=== PATIENT | male | born 1940 | race Caucasian/White ===

== ENCOUNTER → 2020-05-03 13:44 | Outpatient (BNVA) | payer MEDICARE, SELFPAY | PROVIDERS: PCP Internal Medicine; Visit Provider Internal Medicine | DX: I48.0 Paroxysmal atrial fibrillation (principal); Z51.81 Encounter for therapeutic drug level monitoring; Z79.01 Long term (current) use of anticoagulants | CPT/HCPCS: 85610; 99211 ==

== ENCOUNTER → 2020-05-31 13:37 | Outpatient (BNVA) | payer MEDICARE, SELFPAY | PROVIDERS: PCP Internal Medicine; Visit Provider Internal Medicine | DX: I48.0 Paroxysmal atrial fibrillation (principal); Z51.81 Encounter for therapeutic drug level monitoring; Z79.01 Long term (current) use of anticoagulants | CPT/HCPCS: 85610; 99211 ==

== ENCOUNTER → 2020-06-28 13:08 | Outpatient (BNVA) | payer MEDICARE, SELFPAY | PROVIDERS: PCP Internal Medicine; Visit Provider Internal Medicine | DX: I48.0 Paroxysmal atrial fibrillation (principal); Z51.81 Encounter for therapeutic drug level monitoring; Z79.01 Long term (current) use of anticoagulants | CPT/HCPCS: 85610; 99211 ==

== ENCOUNTER 2020-07-03 06:02 | Outpatient (REF) | payer MEDICARE, SELFPAY ==
[2020-07-03 11:39] LABS: Alanine Aminotransferase 25 U/L (0-40); Albumin Level 4.2 g/dL (3.5-5.0); Alkaline Phosphatase 73 U/L (39-117); Aspartate Amino Transferase 23 U/L (5-37); Bilirubin Direct 0.4 mg/dL (0.0-0.5); Bilirubin Total 0.9 mg/dL (0.0-1.0); Cholesterol 159 mg/dL; Glucose Fasting 240 mg/dL (60-99); HDL Cholesterol 63 mg/dL; LDL Cholesterol Calculated 74 mg/dl; Total Protein 7.1 g/dL (6.5-8.0); Triglycerides 110 mg/dL
[2020-07-03 12:04] LABS: Estimated Average Glucose 280 mg/dL; Hemoglobin A1c % 11.4 %
== END 2020-07-03 06:03 | disposition home or self-care (01) ==
LOC: HO.HMGCLDS 06:02
PROVIDERS: PCP Internal Medicine; Visit Provider Internal Medicine
DX: E03.9 Hypothyroidism, unspecified (principal); E11.9 Type 2 diabetes mellitus without complications; E78.00 Pure hypercholesterolemia, unspecified
CPT/HCPCS: 80061; 80076; 82947; 83036; 84443

== ENCOUNTER → 2020-07-26 12:47 | Outpatient (BNVA) | payer MEDICARE, SELFPAY | PROVIDERS: PCP Internal Medicine; Visit Provider Internal Medicine | DX: I48.0 Paroxysmal atrial fibrillation (principal); Z79.01 Long term (current) use of anticoagulants; Z51.81 Encounter for therapeutic drug level monitoring | CPT/HCPCS: 85610; 99211 ==

== ENCOUNTER → 2020-08-23 13:23 | Outpatient (BNVA) | payer MEDICARE, SELFPAY | PROVIDERS: PCP Internal Medicine; Visit Provider Internal Medicine | DX: I48.0 Paroxysmal atrial fibrillation (principal); Z51.81 Encounter for therapeutic drug level monitoring; Z79.01 Long term (current) use of anticoagulants | CPT/HCPCS: 85610; 99211 ==

== ENCOUNTER → 2020-09-20 13:08 | Outpatient (BNVA) | payer MEDICARE, SELFPAY | PROVIDERS: PCP Internal Medicine; Visit Provider Internal Medicine | DX: I48.0 Paroxysmal atrial fibrillation (principal); Z51.81 Encounter for therapeutic drug level monitoring; Z79.01 Long term (current) use of anticoagulants | CPT/HCPCS: 85610; 99211 ==

== ENCOUNTER → 2020-10-19 13:16 | Outpatient (BNVA) | payer MEDICARE, SELFPAY | PROVIDERS: PCP Internal Medicine; Visit Provider Internal Medicine | DX: I48.0 Paroxysmal atrial fibrillation (principal); Z79.01 Long term (current) use of anticoagulants; Z51.81 Encounter for therapeutic drug level monitoring | CPT/HCPCS: 85610; 99211 ==

== ENCOUNTER → 2020-11-16 13:10 | Outpatient (BNVA) | payer MEDICARE, SELFPAY | PROVIDERS: PCP Internal Medicine; Visit Provider Internal Medicine | DX: I48.0 Paroxysmal atrial fibrillation (principal); Z79.01 Long term (current) use of anticoagulants; Z51.81 Encounter for therapeutic drug level monitoring | CPT/HCPCS: 85610; 99211 ==

== ENCOUNTER → 2020-12-07 13:16 | Outpatient (BNVA) | payer MEDICARE, SELFPAY | PROVIDERS: PCP Internal Medicine; Visit Provider Internal Medicine | DX: I48.0 Paroxysmal atrial fibrillation (principal); Z51.81 Encounter for therapeutic drug level monitoring; Z79.01 Long term (current) use of anticoagulants | CPT/HCPCS: 85610; 99211 ==

== ENCOUNTER → 2021-01-04 13:17 | Outpatient (BNVA) | payer MEDICARE, SELFPAY | PROVIDERS: PCP Internal Medicine; Visit Provider Internal Medicine | DX: I48.0 Paroxysmal atrial fibrillation (principal); Z51.81 Encounter for therapeutic drug level monitoring; Z79.01 Long term (current) use of anticoagulants | CPT/HCPCS: 85610; 99211 ==

== ENCOUNTER 2021-01-08 12:53 | Outpatient (REF) | payer MEDICARE, SELFPAY ==
[2021-01-08 12:58] LABS: MANUAL DIFF FLAG NO
[2021-01-08 13:06] LABS: Basophils Percent Auto 0.7 % (0-2); Eosinophils Absolute Auto 0.4 X10*3/uL (0.0-0.4); Eosinophils Percent Auto 7.1 % (0-4); Imm Gran Abs Auto 0.04 X10*3/uL (0.00-0.03); Imm Gran Pct Auto 0.7 % (0.0-0.4); Lymphocytes Absolute Auto 1.7 X10*3/uL (1.2-4.9); Lymphocytes Percent Auto 29.9 % (20-40); Mean Corpuscular HGB Conc 32.6 g/dl (31.0-36.0); Mean Corpuscular Hemoglobin 31.7 pg (27.0-33.0); Mean Corpuscular Volume 97.5 fL (80-98); Mean Platelet Volume 11.7 fL (9.4-12.4); Monocytes Absolute Auto 0.5 X10*3/uL (0.1-1.2); Monocytes Percent Auto 9.4 % (2-11); Neutrophils Absolute Auto 2.9 X10*3/uL (2.0-8.3); Neutrophils Percent Auto 52.2 % (45-73); Platelet Count 157 X10*3/uL (160-400); Red Blood Count 4.41 X10*6/uL (4.60-5.80); Red Cell Distribution Width 12.9 % (11.0-16.0); White Blood Count 5.6 X10*3/uL (4.8-10.8)
[2021-01-08 13:13] LABS: Estimated Average Glucose 289 mg/dL; Hemoglobin A1c % 11.7 %
[2021-01-08 13:57] LABS: Alanine Aminotransferase 22 U/L (0-40); Alkaline Phosphatase 68 U/L (39-117); Anion Gap 12 (12-20); Aspartate Amino Transferase 26 U/L (5-37); Bilirubin Total 0.8 mg/dL (0.0-1.0); Blood Urea Nitrogen 15 mg/dL (9-16); Calcium 8.8 mg/dL (8.4-10.2); Carbon Dioxide 29 mmol/L (22-29); Chloride 102 mmol/L (96-108); Cholesterol 146 mg/dL; Estimated Glomerular Filt Rate > 60; Glucose Fasting 161 mg/dL (60-99); HDL Cholesterol 52 mg/dL; LDL Cholesterol Calculated 70 mg/dl; Sodium 139 mmol/L (135-145); Total Protein 6.6 g/dL (6.5-8.0); Triglycerides 121 mg/dL
[2021-01-08 13:59] LABS: Creatinine Urine 257.28 mg/dL; Microalbum/Creatinine Ratio Ur 24.8 ug/mg cr
[2021-01-08 14:06] LABS: Reflex LDLD? No
[2021-01-08 14:07] LABS: Glucose Urine UA NEG (NEG); Leukocyte Esterase Urine NEG (NEG); Nitrite Urine NEG (NEG); PH 5.5 (5.0-8.0); Specific Gravity - Urine >= 1.030 (1.005-1.025); Urine Blood NEG (NEG); Urine Ketones 5 MG/DL (NEG); Urine Protein TRACE MG/DL (NEG-TRACE)
[2021-01-08 14:13] LABS: PSA,Total (Free>4and<10) 1.05 ng/mL (0.00-4.00); TSH reflex Free T4 3.93 uIU/mL (0.32-4.0)
[2021-01-08 14:14] LABS: Appearance Urine CLEAR; Color Urine YELLOW
== END 2021-01-08 12:54 | disposition home or self-care (01) ==
LOC: HO.LNP 12:53
PROVIDERS: Visit Provider Internal Medicine
DX: Z12.5 Encounter for screening for malignant neoplasm of prostate (principal); I10 Essential (primary) hypertension; E78.00 Pure hypercholesterolemia, unspecified; D64.9 Anemia, unspecified; E11.40 Type 2 diabetes mellitus with diabetic neuropathy, unspecified; E03.9 Hypothyroidism, unspecified
CPT/HCPCS: 80053; 80061; 81003; 82043; 83036; 84153; 84443; 85025

== ENCOUNTER → 2021-02-01 13:03 | Outpatient (BNVA) | payer MEDICARE, SELFPAY | PROVIDERS: PCP Internal Medicine; Visit Provider Internal Medicine | DX: I48.0 Paroxysmal atrial fibrillation (principal); Z51.81 Encounter for therapeutic drug level monitoring; Z79.01 Long term (current) use of anticoagulants | CPT/HCPCS: 85610; 99211 ==

== ENCOUNTER 2021-02-22 15:40 | Emergency (ER) | payer MEDICARE, SELFPAY ==
--- NOTE | ~2021-02-22 | XR_ITS ---
EXAMINATION: XR WRIST, RIGHT CLINICAL INFORMATION: Wound. Concern for osteomyelitis. COMPARISON: None TECHNIQUE: Four views of the right wrist. FINDINGS: There is no bone destruction or abnormal periosteal reaction. No radiographic evidence for osteomyelitis. 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 Mild joint narrowing of the radiocarpal joint. Small vessel calcifications of the wrist. XR/XR wrist RT 2V IMPRESSION: No radiographic evidence for ostomy myelitis. 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
[2021-02-22 15:56] VITALS: BP 155/63; PULSE 76; RESP 16; O2SAT 97; BMI 33.9
--- NOTE | 2021-02-22 17:31 | ED_ITS ---
HPI - Wound/Laceration General Chief Complaint: Wound/Laceration Stated Complaint: WRIST INFECTION Time Seen by Provider: 02/22/21 17:17 Source: patient Mode of arrival: ambulatory Limitations: no limitations History of Present Illness HPI narrative: 80 yo male with a past medical history insulin-dependent diabetes, AFib on Coumadin here with complaints of redness and pain to the right wrist. Patient tells me 6 days ago he was working on his tractor when he caused a skin tear to the right wrist. Yesterday he noticed some redness and swelling to the site. He spoke to his primary care doctor today and was sent into the emergency department for further evaluation. No fevers or chills. He tells me his blood sugars have been running high for him (200's). Related Data Home Medications Medication Instructions Recorded Confirmed atorvastatin 80 mg tablet 80 mg PO DAILY 06/28/20 01/04/21 celecoxib 200 mg capsule 200 mg PO DAILY 06/28/20 01/04/21 insulin glargine 100 unit/mL (3 40 unit SUBCUT DAILY 06/28/20 01/04/21 mL) subcutaneous pen ketoconazole 2 % topical cream appl TOPICAL 06/28/20 01/04/21 levothyroxine 125 mcg tablet 125 mcg PO QAM 06/28/20 01/04/21 metformin 1,000 mg tablet 1,000 mg PO BID 06/28/20 01/04/21 paroxetine HCl 10 mg tablet 10 mg PO DAILY 06/28/20 01/04/21 pen needle, diabetic 31 gauge x #50 ea 06/28/20 01/04/2109/26 chlorhexidine gluconate 0.12 % ml PO BID 11/16/20 01/04/21 mouthwash levothyroxine 125 mcg tablet 125 mcg PO DAILY 11/16/20 01/04/21 tamsulosin 0.4 mg capsule 0.4 mg PO BID 11/16/20 01/04/21 triamcinolone acetonide 0.025 % appl TOPICAL DIRECTED 11/16/20 01/04/21 topical cream Previous Rx's Medication Instructions Recorded warfarin 5 mg tablet 5 mg PO DAILY #90 tab 05/03/20 doxycycline monohydrate 100 mg 100 mg PO BID #20 cap 02/22/21 capsule Allergies Allergy/AdvReac Type Severity Reaction Status Date / Time No Known Allergies Allergy Verified 12/07/20 13:17 [No Known Allergies*] Review of Systems Review of Systems: Yes all other systems are reviewed and are negative Constitutional: Constitutional: Reports no additional constitutional complaints, Denies body ache(s), Denies chills, Denies fever(s), Denies headache(s) and Denies weakness Eyes: Eyes: Reports no additional eye complaints and Denies change in vision ENT: Reports system reviewed and no additional complaints, except as documented, Denies dizziness, Denies headache(s), Denies nasal congestion, Denies nasal discharge and Denies neck pain Cardiovascular: Cardiovascular: Reports no additional cardiovascular complaints, Denies chest pain, Denies leg edema and Denies dyspnea Respiratory: Respiratory: Reports no additional respiratory complaints, Denies cough and Denies dyspnea Gastrointestinal: Gastrointestinal: Reports no additional gastrointestinal complaints, Denies abdominal pain, Denies diarrhea, Denies nausea and Denies vomiting Genitourinary: Genitourinary: Denies urinary incontinence Musculoskeletal: Musculoskeletal: Reports no additional musculoskeletal complaints, Denies back pain, Denies arthralgias, Denies joint swelling, Denies neck pain, Denies numbness and Denies tingling Integumentary/Breasts: Skin/Breast: Reports system reviewed and no additional complaints, except as docu, Reports swelling, Reports erythema and Denies rash Neurologic: Reports system reviewed and no additional complaints, except as documented, Denies Abnormal speech present, Denies dizziness, Denies headache(s), Denies numbness, Denies tingling and Denies weakness PMFSH Past Medical History Attestation statement: The following information was validated with the patient. Source: old records reviewed and nursing notes reviewed Medical History Diabetes Social History Social History Advance Directives: No Advance Directives Information Provided: No Physical Exam Vital Signs: Vital Signs: Last Vital Signs Temp 97.5 F 02/22/21 19:30 Pulse 67 02/22/21 19:30 Resp 17 02/22/21 19:30 BP 173/83 H 02/22/21 19:30 Pulse Ox 97 02/22/21 19:30 Body Mass Index 33.9 Const: General: cooperative, healthy appearing, comfortable and no acute distress Orientation/consciousness: patient oriented x3 Limitations: no limitations HENMT: Head: Yes normal to inspection Ears: hearing grossly normal bilaterally General nose exam: Normal external nose present Face and sinus: Yes normal facial exam Mouth: Normal oral and palatal mucosa present Throat: Yes posterior oropharynx normal Eyes: General: appearance normal, both eyes and all related structures Pupils: Equal, round and reactive pupils present Neck: Neck: Yes normal visual inspection Chest: Chest palpation & inspection: normal inspection of the chest Resp: Effort & Inspection: normal respiratory effort Auscultation: clear to auscultation bilaterally Cardio: Rate: regular rate Rhythm: regular rhythm Peripheral pulses: Peripheral pulses 2+ throughout GI: Inspection: Yes normal to inspection Palpation (GI): Soft to palpation and nontender Auscultation: normal bowel sounds Back/Spine/Pelvis: Thoracic/Lumbar Spine: thoracic and lumbar spine normal to inspection Skin: General skin exam: no rashes or lesions noted Neuro: General: patient oriented x3, no focal motor deficits and normal sensation to monofilament Cranial nerves: Yes Equal, round and reactive pupils present Cognition (Neuro): normal cognition Speech: No Abnormal speech present Gait exam (Neuro): Normal gait present Motor exam (neuro): 5/5 motor strength present throughout Extrem: Other: No pain with passive or active range of motion of the wrist. No fluctuance or induration or abscess noted. Palpable distal pulses. General: Yes normal to inspection Course Course Course Narrative: 80-year-old male here with right wrist abrasion from an incident 6 days ago now with redness and swelling from the site. No fevers or chills. Exam is consistent with a mild cellulitis which is not circumferential. No fever. Will check labs, FA x-ray. -labs unremarkable. No leukocytosis or shift. Patient is afebrile. X-ray shows no acute finding. Patient is a mild cellulitis in the area was marked the skin marker. There is no evidence of tenosynovitis with full range of motion both passively and actively with no pain. Will discharge home with course of antibiotics. Reviewed worrisome signs and symptoms when to return to the emergency department. Comfortable discharge home. MDM - Wound/Laceration Medical Records Attestation: I reviewed the patient's medical records. Lab Data Attestation: I reviewed the patient's lab results. Result diagrams: 02/22/21 17:48 02/22/21 17:48 Labs: Lab Results 02/22/21 02/22/21 Range/Units 17:48 17:48 WBC 7.1 (4.8-10.8) X10*3/uL RBC 4.12 L (4.60-5.80) X10*6/uL Hgb 13.1 L (14.0-18.0) g/dl Hct 38.8 L (42-52) % MCV 94.2 (80-98) fL MCH 31.8 (27.0-33.0) pg MCHC 33.8 (31.0-36.0) g/dl RDW 12.6 (11.0-16.0) % Plt Count 165 (160-400) X10*3/uL MPV 10.4 (9.4-12.4) fL Immature Gran % (Auto) 0.6 H (0.0-0.4) % Neut % (Auto) 65.9 (45-73) % Lymph % (Auto) 19.4 L (20-40) % [place] % (Auto) 7.9 (2-11) % Eos % (Auto) 5.5 H (0-4) % Baso % (Auto) 0.7 (0-2) % Lymph # (Auto) 1.4 (1.2-4.9) X10*3/uL [place] # (Auto) 0.6 (0.1-1.2) X10*3/uL Eos # (Auto) 0.4 (0.0-0.4) X10*3/uL Baso # (Auto) 0.1 (0.0-0.2) X10*3/uL Abs Immat Gran (auto) 0.04 H (0.00-0.03) X10*3/uL Absolute Neuts (auto) 4.7 (2.0-8.3) X10*3/uL Absolute Nucleated RBC 0.000 (0.0-0.012) X10*3/uL Nucleated RBC % (auto) 0.0 (0.0-0.2) /100WBC Sodium 139 (135-145) mmol/L Potassium 4.8 (3.3-5.1) mmol/L Chloride 104 (96-108) mmol/L Carbon Dioxide 25 (22-29) mmol/L Anion Gap 15 (12-20) BUN 11 (9-16) mg/dL Creatinine 0.90 (0.5-1.4) mg/dL Estim Creat Clear Calc 83.6 Estimated GFR > 60 Random Glucose 182 H (60-115) mg/dL Calcium 9.0 (8.4-10.2) mg/dL Total Bilirubin 0.9 (0.0-1.0) mg/dL Direct Bilirubin 0.4 (0.0-0.5) mg/dL AST 27 (5-37) U/L ALT 25 (0-40) U/L Alkaline Phosphatase 71 (39-117) U/L Total Protein 6.8 (6.5-8.0) g/dL Albumin 4.1 (3.5-5.0) g/dL Imaging Data forearm xray: Attestation: I personally reviewed and interpreted this imaging study as follows: Radiologist's impression: [address] [address] XRay Report Signed Patient: Leighton Sierra MR#: [id number] : 1940 Acct:[id number] Age/Sex: 80 / M ADM Date: 02/22/21 Loc: .ED Attending Dr: Ordering Physician: GALEN YHLTON NP Date of Service: 02/22/21 Procedure(s): XR wrist RT 2V Accession Number(s): [id number] cc: GALEN HYLTON NP~ EXAMINATION: XR WRIST, RIGHT CLINICAL INFORMATION: Wound. Concern for osteomyelitis.? COMPARISON: None? TECHNIQUE: Four views of the right wrist. FINDINGS: There is no bone destruction or abnormal periosteal reaction. No radiographic evidence for osteomyelitis. 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 Mild joint narrowing of the radiocarpal joint. Small vessel calcifications of the wrist.? XR/XR wrist RT 2V IMPRESSION: No radiographic evidence for ostomy myelitis. 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 Discharge Plan Discharge Clinical Impression: Cellulitis Patient Disposition: Home, Self-Care Instructions: Cellulitis (ED) Additional Instructions: Start your antibiotics today Warm compresses 4 times a day Return for fever greater than 100.4, difficulty bending or extending the wrist, redness that extends 360 around the arm, increasing pain Prescriptions: New doxycycline monohydrate 100 mg capsule 100 mg PO BID Qty: 20 RF: 0 No Action tamsulosin 0.4 mg capsule 0.4 mg PO BID RF: 0 triamcinolone acetonide 0.025 % cream topical DIRECTED RF: 0 chlorhexidine gluconate 0.12 % mouthwash PO BID RF: 0 levothyroxine 125 mcg tablet 125 mcg PO DAILY RF: 0 warfarin 5 mg tablet 5 mg PO DAILY Qty: 90 RF: 0 levothyroxine 125 mcg tablet 125 mcg PO QAM RF: 0 ketoconazole 2 % cream topical RF: 0 Lantus Solostar U-100 Insulin 100 unit/mL (3 mL) insulin pen 40 unit subcut DAILY RF: 0 paroxetine HCl 10 mg tablet 10 mg PO DAILY RF: 0 (DME) pen needle, diabetic 31 gauge x 3/16 needle See Rx Instructions ea subcut DIRECTED Qty: 50 RF: 0 celecoxib 200 mg capsule 200 mg PO DAILY RF: 0 atorvastatin 80 mg tablet 80 mg PO DAILY RF: 0 metformin 1,000 mg tablet 1,000 mg PO BID RF: 0 Referrals: Huan Martinez MD [Primary Care Provider] - 2 days Interventions: ED Discharge Assessment Last Done: 02/22/21 19:58 Discharge Date/Time: 02/22/21 19:59
[2021-02-22 17:54] LABS: MANUAL DIFF FLAG NO
[2021-02-22 17:55] LABS: Basophils Absolute Auto 0.1 X10*3/uL (0.0-0.2); Basophils Percent Auto 0.7 % (0-2); Eosinophils Absolute Auto 0.4 X10*3/uL (0.0-0.4); Eosinophils Percent Auto 5.5 % (0-4); Hematocrit 38.8 % (42-52); Hemoglobin 13.1 g/dl (14.0-18.0); Imm Gran Abs Auto 0.04 X10*3/uL (0.00-0.03); Imm Gran Pct Auto 0.6 % (0.0-0.4); Lymphocytes Absolute Auto 1.4 X10*3/uL (1.2-4.9); Lymphocytes Percent Auto 19.4 % (20-40); Mean Corpuscular HGB Conc 33.8 g/dl (31.0-36.0); Mean Corpuscular Hemoglobin 31.8 pg (27.0-33.0); Mean Corpuscular Volume 94.2 fL (80-98); Mean Platelet Volume 10.4 fL (9.4-12.4); Monocytes Absolute Auto 0.6 X10*3/uL (0.1-1.2); Monocytes Percent Auto 7.9 % (2-11); Neutrophils Absolute Auto 4.7 X10*3/uL (2.0-8.3); Neutrophils Percent Auto 65.9 % (45-73); Platelet Count 165 X10*3/uL (160-400); Red Blood Count 4.12 X10*6/uL (4.60-5.80); Red Cell Distribution Width 12.6 % (11.0-16.0); White Blood Count 7.1 X10*3/uL (4.8-10.8)
[2021-02-22 19:30] VITALS: BP 173/83; PULSE 67; RESP 17; TEMP 36.4; O2SAT 97
--- NOTE | 2021-02-22 19:33 | PC.NURSE ---
pt aaox4, resting on stretcher in NAD, breathing with ease on RA. Pt c/o R forearm pain 09/20, denies all other complaints. Pt awaiting lab results and dispo, is aware and agreeable to this plan. Pt stretcher low locked, rails raised, call munoz within reach.
[2021-02-22 19:38] LABS: Alanine Aminotransferase 25 U/L (0-40); Albumin Level 4.1 g/dL (3.5-5.0); Alkaline Phosphatase 71 U/L (39-117); Anion Gap 15 (12-20); Aspartate Amino Transferase 27 U/L (5-37); Bilirubin Direct 0.4 mg/dL (0.0-0.5); Bilirubin Total 0.9 mg/dL (0.0-1.0); Blood Urea Nitrogen 11 mg/dL (9-16); Carbon Dioxide 25 mmol/L (22-29); Chloride 104 mmol/L (96-108); Creatinine Clr Calc Pharmacy 83.6; Estimated Glomerular Filt Rate > 60; Glucose Random 182 mg/dL (60-115); Potassium 4.8 mmol/L (3.3-5.1); Sodium 139 mmol/L (135-145); Total Protein 6.8 g/dL (6.5-8.0)
== END 2021-02-22 19:59 | disposition home or self-care (01) ==
PROVIDERS: Nurse Practitioner Family; Emergency Provider Emergency Medicine Emergency Medical Services; PCP Internal Medicine
DX: L03.113 Cellulitis of right upper limb (principal); M25.531 Pain in right wrist; E11.9 Type 2 diabetes mellitus without complications; I48.91 Unspecified atrial fibrillation; Z79.4 Long term (current) use of insulin; Z79.899 Other long term (current) drug therapy; Z79.01 Long term (current) use of anticoagulants
CPT/HCPCS: 36415; 73100; 80048; 80076; 85025; 99283; 99284

== ENCOUNTER → 2021-03-15 13:02 | Outpatient (BNVA) | payer MEDICARE, SELFPAY | PROVIDERS: PCP Internal Medicine; Visit Provider Internal Medicine | DX: I48.0 Paroxysmal atrial fibrillation (principal); Z51.81 Encounter for therapeutic drug level monitoring; Z79.01 Long term (current) use of anticoagulants | CPT/HCPCS: 85610; 99211 ==

== ENCOUNTER → 2021-04-26 13:03 | Outpatient (BNVA) | payer MEDICARE, SELFPAY | PROVIDERS: PCP Internal Medicine; Visit Provider Internal Medicine | DX: I48.0 Paroxysmal atrial fibrillation (principal); Z51.81 Encounter for therapeutic drug level monitoring; Z79.01 Long term (current) use of anticoagulants | CPT/HCPCS: 85610; 99211 ==

== ENCOUNTER → 2021-05-23 13:29 | Outpatient (BNVA) | payer MEDICARE, SELFPAY | PROVIDERS: PCP Internal Medicine; Visit Provider Internal Medicine | DX: I48.0 Paroxysmal atrial fibrillation (principal); Z51.81 Encounter for therapeutic drug level monitoring; Z79.01 Long term (current) use of anticoagulants | CPT/HCPCS: 85610; 99211 ==

== ENCOUNTER → 2021-06-13 13:04 | Outpatient (BNVA) | payer MEDICARE, SELFPAY | PROVIDERS: PCP Internal Medicine; Visit Provider Internal Medicine | DX: I48.0 Paroxysmal atrial fibrillation (principal); Z51.81 Encounter for therapeutic drug level monitoring; Z79.01 Long term (current) use of anticoagulants | CPT/HCPCS: 85610; 99211 ==

== ENCOUNTER → 2021-07-11 13:01 | Outpatient (BNVA) | payer MEDICARE, SELFPAY | PROVIDERS: PCP Internal Medicine; Visit Provider Internal Medicine | DX: I48.0 Paroxysmal atrial fibrillation (principal); Z51.81 Encounter for therapeutic drug level monitoring; Z79.01 Long term (current) use of anticoagulants | CPT/HCPCS: 85610; 99211 ==

== ENCOUNTER 2021-07-19 10:43 | Outpatient (REF) | payer MEDICARE, SELFPAY ==
[2021-07-19 11:07] LABS: Estimated Average Glucose 252 mg/dL; Hemoglobin A1c % 10.4 %
[2021-07-19 11:12] LABS: Alanine Aminotransferase 29 U/L (0-40); Albumin Level 3.9 g/dL (3.5-5.0); Alkaline Phosphatase 66 U/L (39-117); Aspartate Amino Transferase 26 U/L (5-37); Bilirubin Direct 0.4 mg/dL (0.0-0.5); Cholesterol 142 mg/dL; Glucose Fasting 308 mg/dL (60-99); HDL Cholesterol 49 mg/dL; LDL Cholesterol Calculated 74 mg/dl; Total Protein 6.6 g/dL (6.5-8.0); Triglycerides 99 mg/dL
[2021-07-19 12:58] LABS: Reflex LDLD? No
== END 2021-07-19 10:44 | disposition home or self-care (01) ==
LOC: HO.LNP 10:43
PROVIDERS: Visit Provider Internal Medicine
DX: E78.00 Pure hypercholesterolemia, unspecified (principal); E11.9 Type 2 diabetes mellitus without complications
CPT/HCPCS: 80061; 80076; 82947; 83036

== ENCOUNTER → 2021-07-20 13:06 | Outpatient (BNVA) | payer MEDICARE, SELFPAY | PROVIDERS: PCP Internal Medicine; Visit Provider Internal Medicine | DX: I48.0 Paroxysmal atrial fibrillation (principal); Z51.81 Encounter for therapeutic drug level monitoring; Z79.01 Long term (current) use of anticoagulants | CPT/HCPCS: 85610; 99211 ==

== ENCOUNTER → 2021-08-17 13:05 | Outpatient (BNVA) | payer MEDICARE, SELFPAY | PROVIDERS: PCP Internal Medicine; Visit Provider Internal Medicine | DX: I48.0 Paroxysmal atrial fibrillation (principal); Z51.81 Encounter for therapeutic drug level monitoring; Z79.01 Long term (current) use of anticoagulants | CPT/HCPCS: 85610; 99211 ==

== ENCOUNTER → 2021-09-14 13:01 | Outpatient (BNVA) | payer MEDICARE, SELFPAY | PROVIDERS: PCP Internal Medicine; Visit Provider Internal Medicine | DX: I48.0 Paroxysmal atrial fibrillation (principal); Z51.81 Encounter for therapeutic drug level monitoring; Z79.01 Long term (current) use of anticoagulants | CPT/HCPCS: 85610; 99211 ==

== ENCOUNTER → 2021-10-12 13:00 | Outpatient (BNVA) | payer MEDICARE, SELFPAY | PROVIDERS: PCP Internal Medicine; Visit Provider Internal Medicine | DX: I48.0 Paroxysmal atrial fibrillation (principal); Z51.81 Encounter for therapeutic drug level monitoring; Z79.01 Long term (current) use of anticoagulants | CPT/HCPCS: 85610; 99211 ==

== ENCOUNTER → 2021-11-09 13:02 | Outpatient (BNVA) | payer MEDICARE, SELFPAY | PROVIDERS: PCP Internal Medicine; Visit Provider Internal Medicine | DX: I48.0 Paroxysmal atrial fibrillation (principal); Z79.01 Long term (current) use of anticoagulants; Z51.81 Encounter for therapeutic drug level monitoring | CPT/HCPCS: 85610; 99211 ==

== ENCOUNTER → 2021-12-07 13:05 | Outpatient (BNVA) | payer MEDICARE, SELFPAY | PROVIDERS: PCP Internal Medicine; Visit Provider Internal Medicine | DX: I48.0 Paroxysmal atrial fibrillation (principal); Z79.01 Long term (current) use of anticoagulants; Z51.81 Encounter for therapeutic drug level monitoring | CPT/HCPCS: 85610; 99211 ==

== ENCOUNTER 2021-12-15 15:57 | Emergency (ER) | payer MEDICARE, SELFPAY ==
--- NOTE | 2021-12-15 07:54 | ECG_ITS ---
Test Reason : CARDIAC ARREST Blood Pressure : / mmHG Vent. Rate : 077 BPM Atrial Rate : 000 BPM P-R Int : 000 ms QRS Dur : 166 ms QT Int : 444 ms P-R-T Axes : 000 231 052 degrees QTc Int : 502 ms Atrial fibrillation Right bundle branch block ST depression, consider subendocardial injury Abnormal ECG When compared with ECG of 21-JUL-2014 08:32, Significant changes have occurred Referred By: Criss Rodriguez Electronically Signed By:RAIZA GARCIA
--- NOTE | 2021-12-15 16:36 | ED.CPR ---
HPI - CPR General Chief Complaint: Cardiac Arrest/CPR Stated Complaint: UNWITNESSED CARDIAC ARREST,[place] PER EMS Time Seen by Provider: 12/15/21 16:36 Source: family and EMS Mode of arrival: EMS History of Present Illness HPI narrative: 81-year-old male with history of atrial fibrillation and diabetes on anticoagulation is brought in by EMS for unknown down time and being found by his . EMS reports that they had to place a Steven tube the performed ACLS for approximately 20 minutes, he was shocked once. Related Data Home Medications Medication Instructions Recorded Confirmed atorvastatin 80 mg tablet 80 mg PO DAILY 06/28/20 04/26/21 celecoxib 200 mg capsule 200 mg PO DAILY 06/28/20 04/26/21 insulin glargine 100 unit/mL (3 40 unit SUBCUT DAILY 06/28/20 04/26/21 mL) subcutaneous pen ketoconazole 2 % topical cream appl TOPICAL 06/28/20 04/26/21 levothyroxine 125 mcg tablet 125 mcg PO QAM 06/28/20 04/26/21 metformin 1,000 mg tablet 1,000 mg PO BID 06/28/20 04/26/21 paroxetine HCl 10 mg tablet 10 mg PO DAILY 06/28/20 04/26/21 pen needle, diabetic 31 gauge x #50 ea 06/28/20 04/26/2109/26 chlorhexidine gluconate 0.12 % ml PO BID 11/16/20 04/26/21 mouthwash levothyroxine 125 mcg tablet 125 mcg PO DAILY 11/16/20 04/26/21 tamsulosin 0.4 mg capsule 0.4 mg PO BID 11/16/20 04/26/21 triamcinolone acetonide 0.025 % appl TOPICAL DIRECTED 11/16/20 04/26/21 topical cream Previous Rx's Medication Instructions Recorded warfarin 5 mg tablet 5 mg PO DAILY #90 tab 05/03/20 Allergies Allergy/AdvReac Type Severity Reaction Status Date / Time No Known Allergies Allergy Verified 12/07/21 13:06 [No Known Allergies*] Review of Systems Review of Systems: Yes unobtainable due to endotracheal tube PMFSH Past Medical History Source: nursing notes reviewed Medical History Diabetes Social History Social History Advance Directives: No Advance Directives Information Provided: No Physical Exam Vital Signs: Vital Signs: CPR in progress with the Akbar Steven tube in place with copious amount of vomitus noted on face of patient Course Course Course Narrative: Please review the code sheet for details.I discussed with the who was at bedside and requested that we stop efforts but at that time there was no noted cardiac activity on bedside ultrasound. 165: Time of Notified ME who declines the case #[id number] Reevaluation(s) Reevaluation #1: Contacted Dr Bailon and Dr Song for ROSC, but then resumed CPR afterwards. Time: 04:42 Reevaluation #2: Contacted Dr Song. MDM - Cardiac Arrest/CPR Lab Data Result diagrams: 12/15/21 16:38 12/15/21 16:38 Labs: Lab Results 12/15/21 12/15/21 12/15/21 Range/Units 16:02 16:38 16:38 WBC 9.3 (4.8-10.8) X10*3/uL RBC 3.74 L (4.60-5.80) X10*6/uL Hgb 11.8 L (14.0-18.0) g/dl Hct 37.5 L (42.0-52.0) % MCV 100.3 H (80.0-98.0) fL MCH 31.6 (27.0-33.0) pg MCHC 31.5 (31.0-36.0) g/dl RDW 12.9 (11.0-16.0) % Plt Count 154 L (160-400) X10*3/uL MPV 11.2 (9.4-12.4) fL Immature Gran % (Auto) Cancelled Neut % (Auto) Cancelled Lymph % (Auto) Cancelled [place] % (Auto) Cancelled Eos % (Auto) Cancelled Baso % (Auto) Cancelled Lymph # (Auto) Cancelled [place] # (Auto) Cancelled Eos # (Auto) Cancelled Baso # (Auto) Cancelled Abs Immat Gran (auto) Cancelled Absolute Neuts (auto) Cancelled Absolute Nucleated RBC 0.090 H (0.0-0.012) X10*3/uL Nucleated RBC % (auto) 1.0 H (0.0-0.2) /100WBC Neutrophils % (Manual) 37 L (45-73) % Band Neutrophils % 17 H (3-5) % Lymphocytes % (Manual) 33 (20-40) % Atypical Lymphs % (Man) 7 H (0-6) % Metamyelocytes % 3 % Myelocytes % 3 % Abs Neuts (Manual) 5.0 (2.0-8.3) X10*3/uL Lymphocytes # (Manual) 3.1 (1.2-4.9) X10*3/uL Atyp Lymphs # (Manual) 0.7 x10*3/uL Metamyelocytes # 0.3 X10*3/uL Myelocytes # 0.3 X10*/uL Platelet Estimate NORMAL (NORMAL) Plt Morphology Comment NORMAL RBC Morphology NOTED Polychromasia 1+ (0-2) /OIF Macrocytosis 1+ (5-14) /OIF Rouleaux PRESENT PT (9.9-13.0) SEC Whole Blood PT (11.1-13.5) sec INR (0.9-1.1) Whole Blood INR (0.9-1.1) Sodium 142 (135-145) mmol/L Potassium 3.8 D (3.3-5.1) mmol/L Chloride 104 (96-108) mmol/L Carbon Dioxide 16 L (22-29) mmol/L Anion Gap 26 H (12-20) BUN 11 (9-16) mg/dL Creatinine 1.44 H (0.5-1.4) mg/dL Estim Creat Clear Calc TNP Estimated GFR 47 POC Glucose 372 H* (60-115) mg/dL Random Glucose 533 H* (60-115) mg/dL Lactic Acid (0.5-2.0) mmol/L Calcium 9.8 D (8.4-10.2) mg/dL Total Bilirubin 0.5 (0.0-1.0) mg/dL AST 309 H (5-37) U/L ALT 249 H (0-40) U/L Alkaline Phosphatase 132 H D (39-117) U/L Troponin I High Sens (<3.5-35.0) ng/L Total Protein 5.0 L D (6.5-8.0) g/dL Albumin 3.0 L D (3.5-5.0) g/dL 12/15/21 12/15/21 12/15/21 Range/Units 16:38 16:38 16:38 WBC (4.8-10.8) X10*3/uL RBC (4.60-5.80) X10*6/uL Hgb (14.0-18.0) g/dl Hct (42.0-52.0) % MCV (80.0-98.0) fL MCH (27.0-33.0) pg MCHC (31.0-36.0) g/dl RDW (11.0-16.0) % Plt Count (160-400) X10*3/uL MPV (9.4-12.4) fL Immature Gran % (Auto) Neut % (Auto) Lymph % (Auto) [place] % (Auto) Eos % (Auto) Baso % (Auto) Lymph # (Auto) [place] # (Auto) Eos # (Auto) Baso # (Auto) Abs Immat Gran (auto) Absolute Neuts (auto) Absolute Nucleated RBC (0.0-0.012) X10*3/uL Nucleated RBC % (auto) (0.0-0.2) /100WBC Neutrophils % (Manual) (45-73) % Band Neutrophils % (3-5) % Lymphocytes % (Manual) (20-40) % Atypical Lymphs % (Man) (0-6) % Metamyelocytes % % Myelocytes % % Abs Neuts (Manual) (2.0-8.3) X10*3/uL Lymphocytes # (Manual) (1.2-4.9) X10*3/uL Atyp Lymphs # (Manual) x10*3/uL Metamyelocytes # X10*3/uL Myelocytes # X10*/uL Platelet Estimate (NORMAL) Plt Morphology Comment RBC Morphology Polychromasia /OIF Macrocytosis /OIF Rouleaux PT 34.9 H (9.9-13.0) SEC Whole Blood PT (11.1-13.5) sec INR 3.0 H (0.9-1.1) Whole Blood INR (0.9-1.1) Sodium (135-145) mmol/L Potassium (3.3-5.1) mmol/L Chloride (96-108) mmol/L Carbon Dioxide (22-29) mmol/L Anion Gap (12-20) BUN (9-16) mg/dL Creatinine (0.5-1.4) mg/dL Estim Creat Clear Calc Estimated GFR POC Glucose (60-115) mg/dL Random Glucose (60-115) mg/dL Lactic Acid 13.7 H* (0.5-2.0) mmol/L Calcium (8.4-10.2) mg/dL Total Bilirubin (0.0-1.0) mg/dL AST (5-37) U/L ALT (0-40) U/L Alkaline Phosphatase (39-117) U/L Troponin I High Sens 89.3 H (<3.5-35.0) ng/L Total Protein (6.5-8.0) g/dL Albumin (3.5-5.0) g/dL 12/15/21 Range/Units 16:51 WBC (4.8-10.8) X10*3/uL RBC (4.60-5.80) X10*6/uL Hgb (14.0-18.0) g/dl Hct (42.0-52.0) % MCV (80.0-98.0) fL MCH (27.0-33.0) pg MCHC (31.0-36.0) g/dl RDW (11.0-16.0) % Plt Count (160-400) X10*3/uL MPV (9.4-12.4) fL Immature Gran % (Auto) Neut % (Auto) Lymph % (Auto) [place] % (Auto) Eos % (Auto) Baso % (Auto) Lymph # (Auto) [place] # (Auto) Eos # (Auto) Baso # (Auto) Abs Immat Gran (auto) Absolute Neuts (auto) Absolute Nucleated RBC (0.0-0.012) X10*3/uL Nucleated RBC % (auto) (0.0-0.2) /100WBC Neutrophils % (Manual) (45-73) % Band Neutrophils % (3-5) % Lymphocytes % (Manual) (20-40) % Atypical Lymphs % (Man) (0-6) % Metamyelocytes % % Myelocytes % % Abs Neuts (Manual) (2.0-8.3) X10*3/uL Lymphocytes # (Manual) (1.2-4.9) X10*3/uL Atyp Lymphs # (Manual) x10*3/uL Metamyelocytes # X10*3/uL Myelocytes # X10*/uL Platelet Estimate (NORMAL) Plt Morphology Comment RBC Morphology Polychromasia /OIF Macrocytosis /OIF Rouleaux PT (9.9-13.0) SEC Whole Blood PT 36.1 H (11.1-13.5) sec INR (0.9-1.1) Whole Blood INR 3.0 H (0.9-1.1) Sodium (135-145) mmol/L Potassium (3.3-5.1) mmol/L Chloride (96-108) mmol/L Carbon Dioxide (22-29) mmol/L Anion Gap (12-20) BUN (9-16) mg/dL Creatinine (0.5-1.4) mg/dL Estim Creat Clear Calc Estimated GFR POC Glucose (60-115) mg/dL Random Glucose (60-115) mg/dL Lactic Acid (0.5-2.0) mmol/L Calcium (8.4-10.2) mg/dL Total Bilirubin (0.0-1.0) mg/dL AST (5-37) U/L ALT (0-40) U/L Alkaline Phosphatase (39-117) U/L Troponin I High Sens (<3.5-35.0) ng/L Total Protein (6.5-8.0) g/dL Albumin (3.5-5.0) g/dL Procedures Intubation Time out performed: No sedative: none Laryngoscope: fiber optic video scope Assist Device Used: fiber optic device ET Tube Size: 7.5 ET Tube Uncuffed: No Tube Secured Depth (cm): 25 Tube Secured Location: teeth Tube Placement Confirmation: visualized tube passing through cords, equal breath sounds bilaterally, no breath sounds over epigastrium and confirmation by capnometry Patient Tolerated Procedure: well Intubation Complications: none Additional Comments: blood in airway Critical Care Time Critical Care Time Critical Care Time: Yes Total Critical Care Time: 30 Attestation: I certify that I have performed this time in critical care of the patient. Discharge Plan Discharge Clinical Impression: Cardiac arrest Patient Disposition: Prescriptions: No Action tamsulosin 0.4 mg capsule 0.4 mg PO BID 0RF triamcinolone acetonide 0.025 % cream topical DIRECTED 0RF chlorhexidine gluconate 0.12 % mouthwash PO BID 0RF levothyroxine 125 mcg tablet 125 mcg PO DAILY 0RF warfarin 5 mg tablet 5 mg PO DAILY Qty: 90 0RF Protocol: Dose Management Condition: Friday (Week One) Dose/Route: 7.5 mg Instruction: 1.5 x 5 mg tablets Condition: Friday Dose/Route: 7.5 mg Instruction: 1.5 x 5 mg tablets Condition: Friday Dose/Route: 7.5 mg Instruction: 1.5 x 5 mg tablets Condition: Friday Dose/Route: 5 mg Instruction: 1 x 5 mg tablet Condition: Dose/Route: 7.5 mg Instruction: 1.5 x 5 mg tablets Condition: Friday Dose/Route: 7.5 mg Instruction: 1.5 x 5 mg tablets Condition: Friday Dose/Route: 7.5 mg Instruction: 1.5 x 5 mg tablets Condition: Friday (Week Two) Dose/Route: 7.5 mg Instruction: 1.5 x 5 mg tablets Condition: Friday Dose/Route: 7.5 mg Instruction: 1.5 x 5 mg tablets Condition: Friday Dose/Route: 7.5 mg Instruction: 1.5 x 5 mg tablets Condition: Friday Dose/Route: 5 mg Instruction: 1 x 5 mg tablet Condition: Dose/Route: 7.5 mg Instruction: 1.5 x 5 mg tablets Condition: Friday Dose/Route: 7.5 mg Instruction: 1.5 x 5 mg tablets Condition: Friday Dose/Route: 7.5 mg Instruction: 1.5 x 5 mg tablets Protocol Text: Adjustment Start Date: Friday12/07/21 INR Value: 2.7 INR Date: 12/07/21 Recheck Date: 01/04/22 Additional Instructions: cont reg dosing call with any medication changes levothyroxine 125 mcg tablet 125 mcg PO QAM 0RF ketoconazole 2 % cream topical 0RF Lantus Solostar U-100 Insulin 100 unit/mL (3 mL) insulin pen 40 unit subcut DAILY 0RF paroxetine HCl 10 mg tablet 10 mg PO DAILY 0RF (DME) pen needle, diabetic 31 gauge x 3/16 needle See Rx Instructions ea subcut DIRECTED Qty: 50 0RF Rx Instructions: As directed celecoxib 200 mg capsule 200 mg PO DAILY 0RF atorvastatin 80 mg tablet 80 mg PO DAILY 0RF metformin 1,000 mg tablet 1,000 mg PO BID 0RF
[2021-12-15 16:48] LABS: Hematocrit 37.5 % (42.0-52.0); Hemoglobin 11.8 g/dl (14.0-18.0); Mean Corpuscular HGB Conc 31.5 g/dl (31.0-36.0); Mean Corpuscular Hemoglobin 31.6 pg (27.0-33.0); Mean Corpuscular Volume 100.3 fL (80.0-98.0); Mean Platelet Volume 11.2 fL (9.4-12.4); Platelet Count 154 X10*3/uL (160-400); Red Blood Count 3.74 X10*6/uL (4.60-5.80); Red Cell Distribution Width 12.9 % (11.0-16.0); White Blood Count 9.3 X10*3/uL (4.8-10.8)
[2021-12-15 16:53] LABS: Prothrombin Time 34.9 SEC (9.9-13.0)
[2021-12-15 16:54] LABS: Prothrombin Time Whole Bld POC 36.1 sec (11.1-13.5)
[2021-12-15 17:11] LABS: Troponin-I High Sensitivity 89.3 ng/L (<3.5-35.0)
[2021-12-15 17:12] LABS: Baso%MD 0.5 %; Eos%MD 2.2 %; IG%MD 14.8 %; Lymph%MD 36.9 %; Mono%MD 3.3 %; Neut%MD 42.3 %
[2021-12-15 17:15] LABS: Atypical Lymph Absolute Manual 0.7 x10*3/uL; Atypical Lymphs Percent Manual 7 % (0-6); Band Neutrophils Percent 17 % (3-5); Lymphocytes Absolute Manual 3.1 X10*3/uL (1.2-4.9); Lymphocytes Percent Manual 33 % (20-40); Metamyelocytes Absolute 0.3 X10*3/uL; Metamyelocytes Percent 3 %; Myelocytes Absolute 0.3 X10*/uL; Myelocytes Percent 3 %; Neutrophils Percent Manual 37 % (45-73)
[2021-12-15 17:16] LABS: Macrocytosis 1+ (5-14) /OIF; RBC Morphology NOTED
[2021-12-15 17:17] LABS: Alanine Aminotransferase 249 U/L (0-40); Alkaline Phosphatase 132 U/L (39-117); Anion Gap 26 (12-20); Aspartate Amino Transferase 309 U/L (5-37); Bilirubin Total 0.5 mg/dL (0.0-1.0); Blood Urea Nitrogen 11 mg/dL (9-16); Calcium 9.8 mg/dL (8.4-10.2); Carbon Dioxide 16 mmol/L (22-29); Chloride 104 mmol/L (96-108); Estimated Glomerular Filt Rate 47; Glucose Random 533 mg/dL (60-115); Polychromasia 1+ (0-2) /OIF; Potassium 3.8 mmol/L (3.3-5.1); Rouleau PRESENT; Sodium 142 mmol/L (135-145)
[2021-12-15 17:18] LABS: Platelet Estimate NORMAL (NORMAL); Platelet Morphology Comment NORMAL
[2021-12-15 17:21] LABS: Lactic Acid 13.7 mmol/L (0.5-2.0)
--- NOTE | 2021-12-15 17:29 | PC.NURSE ---
@1720 DR FLORES REQUEST CALL OUT TO SCHEDULING SPECIALIST OFFICE AND GIVES TIME OF 16:59 NICOLLE ANSWERS,TAKES PT DEMOGRAPHICS AND ASKS TO SPEAK WITH DR SANDRA FLORES TAKES OVER CALL [facility]
--- NOTE | 2021-12-15 17:47 | PC.NURSE ---
PER [facility] OF [facility] ABDON PER DR FLORES CASE DECLINE BY ME OFFICE CASE #: [id number]
--- NOTE | 2021-12-15 18:03 | PM.CCN ---
Critical Care Event Note Summary Date of Service: 12/15/21 Code activated: Yes Narrative: I was called to the ED to assist with the management of Mr. Sierra who was BIBA after an unwitnessed cardiac arrest. The patient is an 81-year-old male with history of atrial fibrillation and diabetes on anticoagulation. The patient was found by his . EMS arrived at the scene, placed a Steven tube, and did ACLS for at least 20 min prior to arrival in the ED. In the ED, the patient was intubated. An OGT put out red blood. Just as I arrived, the fourth round of CPR was start
--- NOTE | 2021-12-15 18:24 | P.CONCC_ITS ---
History of Present Illness Data of Consult Service Date: 12/15/21 Requesting physician: Criss Rodriguez Primary Care Provider: Huan Martinez MD HPI I was called to the ED to assist with the management of Mr. Sierra who was BIBA after an unwitnessed cardiac arrest. The patient is an 81-year-old male with history of atrial fibrillation and diabetes on anticoagulation. The patient was found by his . EMS arrived at the scene, placed a Steven tube, and did ACLS for at least 20 min prior to arrival in the ED. In the ED, the patient was intubated. An OGT put out red blood. Just as I arrived, the fourth round of CPR was started. I echo'd the patient mult times. Ultimately, there was no cardiac activity, not even a wiggle, and the MV and TV leaflets weren't moving. Marked LVH was also noted, and the LV looked possibly underfilled and the RV looked big. The came in the room and made the decision to stop resuscitative efforts. [facility] Past Medical History Medical History Diabetes Social History Social History Advance Directives: No Advance Directives Information Provided: No Meds Allergies Allergy/AdvReac Type Severity Reaction Status Date / Time No Known Allergies Allergy Verified 12/07/21 13:06 [No Known Allergies*] Home Medications Medication Instructions Recorded Confirmed Last Taken Type atorvastatin 80 mg tablet 80 mg PO DAILY 06/28/20 04/26/21 Unknown History celecoxib 200 mg capsule 200 mg PO DAILY 06/28/20 04/26/21 Unknown History insulin glargine 100 unit/mL (3 40 unit SUBCUT DAILY 06/28/20 04/26/21 Unknown History mL) subcutaneous pen ketoconazole 2 % topical cream appl TOPICAL 06/28/20 04/26/21 Unknown History levothyroxine 125 mcg tablet 125 mcg PO QAM 06/28/20 04/26/21 Unknown History metformin 1,000 mg tablet 1,000 mg PO BID 06/28/20 04/26/21 Unknown History paroxetine HCl 10 mg tablet 10 mg PO DAILY 06/28/20 04/26/21 Unknown History pen needle, diabetic 31 gauge x #50 ea 06/28/20 04/26/21 Unknown History 09/26 chlorhexidine gluconate 0.12 % ml PO BID 11/16/20 04/26/21 Unknown History mouthwash levothyroxine 125 mcg tablet 125 mcg PO DAILY 11/16/20 04/26/21 Unknown History tamsulosin 0.4 mg capsule 0.4 mg PO BID 11/16/20 04/26/21 Unknown History triamcinolone acetonide 0.025 % appl TOPICAL DIRECTED 11/16/20 04/26/21 Unknown History topical cream Results Labs CBC & Chem 7: 12/15/21 16:38 12/15/21 16:38 Labs: Short CBC 12/15/21 Range/Units 16:38 WBC 9.3 (4.8-10.8) X10*3/uL Hgb 11.8 L (14.0-18.0) g/dl Hct 37.5 L (42.0-52.0) % Plt Count 154 L (160-400) X10*3/uL BMP 12/15/21 16:38 Sodium 142 Potassium 3.8 D Chloride 104 Carbon Dioxide 16 L BUN 11 Creatinine 1.44 H Calcium 9.8 D Liver Function 12/15/21 Range/Units 16:38 Total Bilirubin 0.5 (0.0-1.0) mg/dL AST 309 H (5-37) U/L ALT 249 H (0-40) U/L Alkaline Phosphatase 132 H D (39-117) U/L Albumin 3.0 L D (3.5-5.0) g/dL
[2021-12-15 18:37] LABS: Glucose, Whole Blood 372 mg/dL (60-115)
[2021-12-15 18:43] LABS: Reflex Lactate? Lactic Acid Added
--- NOTE | 2021-12-15 18:54 | PC.NURSE ---
refer to papaer chart for documentation.
== END 2021-12-15 19:06 | disposition expired ==
PROVIDERS: Emergency Provider Student in an Organized Health Care Education/Training Program; PCP Internal Medicine
DX: I46.9 Cardiac arrest, cause unspecified (principal); Z79.899 Other long term (current) drug therapy; I48.91 Unspecified atrial fibrillation; Z79.01 Long term (current) use of anticoagulants
CPT/HCPCS: 31500; 36415; 80053; 82947; 83605; 84484; 85007; 85027; 85610; 93005; 99291; J0171; J0282